=== PATIENT | male | born 1995 | race Hispanic/Latino ===

== ENCOUNTER 2021-12-24 20:23 | Emergency (ER) | payer MEDICAID ==
[2021-12-24 20:40] VITALS: BP 135/90
== END 2021-12-25 02:20 | disposition left against medical advice (07) ==
LOC: ED 20:23
DX: J11.1 Influenza due to unidentified influenza virus with other respiratory manifestations (principal); Z53.21 Procedure and treatment not carried out due to patient leaving prior to being seen by health care provider